=== PATIENT | male | born 1965 | race Caucasian/White ===

== ENCOUNTER 2020-06-12 12:56 | Emergency (ER) | payer OTHER, SELFPAY ==
[2020-06-12 14:20] VITALS: BP 171/86; PULSE 71; RESP 18; TEMP 36.4; O2SAT 97; BMI 29.5
--- NOTE | 2020-06-12 14:26 | XR_ITS ---
EXAMINATION: XR CHEST CLINICAL INFORMATION: Cough and SOB. COMPARISON: Unremarkable chest exam 10/07/2017 TECHNIQUE: Frontal view of the chest was obtained. FINDINGS: No significant abnormality is noted involving the heart, lungs, mediastinum, bony thorax or soft tissues. XR/XR chest 1V IMPRESSION: Unremarkable chest exam
--- NOTE | 2020-06-12 14:43 | ED.URI ---
HPI - URI/Sore Throat General Chief Complaint: Upper Respiratory Symptoms Stated Complaint: cough, chest wall pain Time Seen by Provider: 06/12/20 14:25 Source: patient Mode of arrival: ambulatory Limitations: no limitations History of Present Illness HPI Narrative: 55 y/o male with history of HTN presenting with severe coughing fits for the last 3 days. He states when he coughs he has trouble catching his breath and has lower rib pain. When he recovers the pain and SOB sensation resolve. He was recently around his granddaughter who was later diagnosed with COVID-19. He denies chest pain, difficutly breathing, N/V, abdominal pain. MD elicited complaint: cough Onset (ago): day(s) (3) Consistency: progressively worsening Severity: moderate Description of mucous: clear Able to tolerate fluids by mouth: Yes Relieving factors: nothing Context: sick contacts Associated symptoms: myalgias, headache, sore throat, cough and shortness of breath Treatments prior to arrival: none Related Data Previous Rx's Medication Instructions Recorded albuterol sulfate 1 inh INHALATION QID PRN #6.7 g 06/12/20 azithromycin [Zithromax Z-Dimitri] See Rx Instructions .ROUTE 06/12/20 .COMPLEX #6 tab benzonatate [Tessalon Perles] 100 mg PO TID PRN #14 cap 06/12/20 hydrocodone-homatropine [Hycodan 5 ml PO Q6H PRN #60 ml 06/12/20 (with homatropine)] prednisone 40 mg PO DAILY #10 tab 06/12/20 Allergies Allergy/AdvReac Type Severity Reaction Status Date / Time No Known Allergies Allergy Verified 06/12/20 14:22 [No Known Allergies*] Review of Systems Review of Systems: Constitutional: No Fever, No Chills ENT/Mouth: + sore throat, No Rhinorrhea, No Swallowing Difficulty Eyes: No Eye Pain, No Swelling, No Redness Cardiovascular: No Chest Pain, + SOB, No Orthopnea, No Edema Respiratory: No Cough, No Sputum, No Wheezing, No dyspnea Gastrointestinal: No Nausea, No Vomiting, No Diarrhea, No abdominal Pain Genitourinary: No Dysuria, No Urinary Frequency, No Hematuria Musculoskeletal: No joint pain, + Myalgias Skin: No Skin Lesions, No rash Neuro: No Weakness, No Numbness, No Dizziness, + Headache PMFSH Past Medical History Attestation statement: The following information was validated with the patient. Medical History HTN (hypertension) Social History Social History Advance Directives: No Advance Directives Information Provided: No Physical Exam Vital Signs: Vital Signs: Last Vital Signs Temp 97.6 F 06/12/20 14:20 Pulse 71 06/12/20 14:20 Resp 18 06/12/20 14:20 BP 171/86 H 06/12/20 14:20 Pulse Ox 97 06/12/20 14:20 Body Mass Index 29.5 Appearance: Alert. Oriented X3. No acute distress. Eyes: Pupils equal, round and reactive to light. ENT: Pharynx normal. Neck: Normal inspection. Neck supple. CVS: Normal heart rate and rhythm. Pulses normal. lower anterior chest wall tenderness. Respiratory: No respiratory distress. Focal inspiratory wheeze in LLL, no rhonchi, cleared after congested cough Abdomen: Soft and nontender. +BS x4 Skin: Skin warm and dry. Normal skin color. Normal skin turgor. No rashes. Extremities: No lower extremity edema. Neuro: Oriented X 3. No motor deficit. No sensory deficit. Course Course Course Narrative: 55 y/o presenting with cough after COVID-19 exposure. Mild wheeze on exam - will get CXR and resp panel. He appears well, conversing in complete sentences. Reevaluation(s) Reevaluation #1: CXR negative, resp panel negative. No distress. Will treat for acute bronchitis. Encouraged re-testing if symptoms persist given his exposure. Stable for discharge. MDM - URI/Sore Throat Lab Data Labs: Lab Results 06/12/20 Range/Units 14:48 Coronavirus (PCR) NEGATIVE (Negative) Influenza Type A (PCR) NEGATIVE (Negative) Influenza Type B (PCR) NEGATIVE (Negative) RSV RNA Qual (PCR) NEGATIVE (Negative) Critical Care Time Critical Care Time Critical Care Time: No Discharge Plan Discharge Clinical Impression: Bronchitis Patient Disposition: Home, Self-Care Instructions: Acute Bronchitis (ED) Additional Instructions: You were tested for COVID-19, Influenza and RSV today - all were NEGATIVE. Your chest x-ray was normal. We will treat you for bronchitis with the prescribed medications. Given your recent exposure to COVID-19, if your symptoms persist recommend getting tested again. If you develop chest pain, difficulty breathing or any other concerning symptom come back to the ER for further evaluation. Prescriptions: New prednisone 20 mg tablet 40 mg PO DAILY Qty: 10 RF: 0 azithromycin [Zithromax Z-Dimitri] 250 mg tablet See Rx Instructions .ROUTE .COMPLEX Qty: 6 RF: 0 hydrocodone-homatropine [Hycodan (with homatropine)] 5-1.5 mg/5 mL syrup 5 ml PO Q6H PRN (Reason: cough) Qty: 60 RF: 0 albuterol sulfate 90 mcg/actuation HFA aerosol inhaler 1 inh inhalation QID PRN (Reason: shortness of breath or wheezing) Qty: 6.7 RF: 0 benzonatate [Tessalon Perles] 100 mg capsule 100 mg PO TID PRN (Reason: cough) Qty: 14 RF: 0 Print Language: Serbian
[2020-06-12 15:48] LABS: Influenza A PCR NEGATIVE (Negative); Influenza B PCR NEGATIVE (Negative); Resp Syncy Virus RNA Qual PCR NEGATIVE (Negative); SARS COV2 PCR INHOUSE NEGATIVE (Negative)
== END 2020-06-12 17:03 | disposition home or self-care (01) ==
PROVIDERS: Physician Assistant; Emergency Provider Emergency Medicine; PCP Internal Medicine
DX: J40 Bronchitis, not specified as acute or chronic (principal); R05 Cough; R06.02 Shortness of breath; Z20.828 Contact with and (suspected) exposure to other viral communicable diseases
CPT/HCPCS: 0241U; 71045; 99283

== ENCOUNTER 2020-11-03 06:37 | Emergency (ER) | payer OTHER, SELFPAY ==
[2020-11-03] VITALS (7 sets, daily range): BP systolic 160–211; BP diastolic 83–96; PULSE 75–85; RESP 18–24; TEMP 37.1; O2SAT 96–97; BMI 29.0
--- NOTE | 2020-11-03 | ECG_ITS ---
Test Reason : CHESTWALLPAIN Blood Pressure : / mmHG Vent. Rate : 078 BPM Atrial Rate : 078 BPM P-R Int : 178 ms QRS Dur : 116 ms QT Int : 380 ms P-R-T Axes : 048 000 052 degrees QTc Int : 433 ms Normal sinus rhythm Incomplete right bundle branch block Borderline ECG When compared with ECG of 03-NOV-2020 07:08, No significant change was found Referred By: Noy Ovalles Electronically Signed By:BETZY PEREZ
--- NOTE | ~2020-11-03 | XR_ITS ---
EXAMINATION: XR CHEST CLINICAL INFORMATION: Shortness of breath COMPARISON: 06/12/2020, 02/08/2016 TECHNIQUE: Frontal view of the chest was obtained. FINDINGS: No focal consolidation, pleural effusion or pneumothorax. Chronic calcifications at the right pleural surface adjacent to the diaphragm. Heart size is normal. No acute osseous abnormality. XR/XR chest 1V IMPRESSION: No acute pulmonary process.
--- NOTE | 2020-11-03 06:48 | ED.SOB ---
HPI - SOB/Dyspnea General Chief Complaint: Dyspnea Stated Complaint: Cough/sob Time Seen by Provider: 11/03/20 06:48 Source: patient and proposal review analyst Mode of arrival: ambulatory Limitations: no limitations History of Present Illness Pertinent past history: other (bronchitis) Onset (ago): day(s) (3) Context: smoke/fume exposure Timing: constant and progressively worsening Severity: moderate Exacerbating factors: exertion and coughing Relieving factors: nothing Known history of: other (bronchitis) Associated symptoms: cough and wheezing Treatment prior to arrival: bronchodilator Related Data Previous Rx's Medication Instructions Recorded albuterol sulfate 1 inh INHALATION QID PRN #6.7 g 06/12/20 azithromycin [Zithromax Z-Dimitri] See Rx Instructions .ROUTE 06/12/20 .COMPLEX #6 tab benzonatate [Tessalon Perles] 100 mg PO TID PRN #14 cap 06/12/20 hydrocodone-homatropine [Hycodan 5 ml PO Q6H PRN #60 ml 06/12/20 (with homatropine)] prednisone 40 mg PO DAILY #10 tab 06/12/20 albuterol sulfate 2 puff INHALATION QID PRN #6.7 g 11/03/20 amlodipine 5 mg PO DAILY #30 tab 11/03/20 prednisone 40 mg PO DAILY 5 Days #10 tab 11/03/20 Allergies Allergy/AdvReac Type Severity Reaction Status Date / Time No Known Allergies Allergy Verified 06/12/20 14:22 [No Known Allergies*] Review of Systems Review of Systems: Constitutional : No Fever, No Chills ENT/Mouth : No sore throat, No Rhinorrhea, No Swallowing Difficulty Eyes: No Eye Pain, No Swelling, No Redness Cardiovascular : No Chest Pain, positive SOB, No Orthopnea, no Edema Respiratory : pos Cough, No Sputum, pos Wheezing, positive dyspnea Gastrointestinal : No Nausea, No Vomiting, No Diarrhea, No abdominal Pain, No Hematochezia, No Melena Genitourinary : No Dysuria, No Urinary Frequency, No Hematuria Musculoskeletal : No joint pain, No Myalgias Skin : No Skin Lesions, No rash Neuro : No Weakness, No Numbness, No Dizziness, No Headache Psych : No Anxiety/Panic, No Depression Heme/Lymph: No Bruising, No Lymphadenopathy Endocrine : No Polyuria, No Polydipsia All other systems reviewed and are negative [facility] Past Medical History Attestation statement: The following information was validated with the patient. Medical History Bronchitis HTN (hypertension) Social History Social History Patient Tobacco Use Status: Current everyday Tobacco user Substance Use Type: Crack/Cocaine Advance Directives: Yes Advance Directives Information Provided: Yes Advance Directives on File: No Physical Exam Vital Signs: Vital Signs: Last Vital Signs Temp 98.7 F 11/03/20 07:15 Pulse 75 11/03/20 11:03 Resp 18 11/03/20 11:03 BP 160/83 H 11/03/20 11:03 Pulse Ox 96 11/03/20 11:03 Body Mass Index 29.0 Appearance: Alert. Oriented X3. No acute distress. Eyes: Pupils equal, round and reactive to light. ENT: Pharynx normal. Neck: Normal inspection. Neck supple. CVS: Normal heart rate and rhythm. Pulses normal. Respiratory: no respiratory distress Breath sounds decreased throughout Abdomen: Soft and nontender. Skin: Skin warm and dry. Normal skin color. Normal skin turgor. Extremities: No lower extremity edema. No calf ttp Neuro: Oriented X 3. No motor deficit. No sensory deficit. Course Course Course Narrative: of note has not been on amlodipine for 1+ month BP improved, feels much better, repeat trop flat, stable for DC MDM - SOB/Dyspnea MDM Narrative Medical decision making narrative: 55 yo male hx of HTN, bronchitis here with 3 days of cough, shortness of breath used cocaine yesterday - at this time he denies CP but is HTNive unsure of his HTN medication at this time labs, CXR< EKG, neb, IV steroids - no CP to suggest PE/ACS, dispo per results and findings. Lab Data Result diagrams: 11/03/20 07:27 11/03/20 07:27 Labs: Lab Results 11/03/20 11/03/20 11/03/20 Range/Units 07:26 07:26 07:26 WBC (4.8-10.8) X10*3/uL RBC (4.60-5.80) X10*6/uL Hgb (14.0-18.0) g/dl Hct (42-52) % MCV (80-98) fL MCH (27.0-33.0) pg MCHC (31.0-36.0) g/dl RDW (11.0-16.0) % Plt Count (160-400) X10*3/uL MPV (9.4-12.4) fL Immature Gran % (Auto) (0.0-0.4) % Neut % (Auto) (45-73) % Lymph % (Auto) (20-40) % Martin % (Auto) (2-11) % Eos % (Auto) (0-4) % Baso % (Auto) (0-2) % Lymph # (Auto) (1.2-4.9) X10*3/uL Martin # (Auto) (0.1-1.2) X10*3/uL Eos # (Auto) (0.0-0.4) X10*3/uL Baso # (Auto) (0.0-0.2) X10*3/uL Abs Immat Gran (auto) (0.00-0.03) X10*3/uL Absolute Neuts (auto) (2.0-8.3) X10*3/uL Absolute Nucleated RBC (0.0-0.012) X10*3/uL Nucleated RBC % (auto) (0.0-0.2) /100WBC Smear Tech's Comments Hold Blue Top SEE NOTE Sodium (135-145) mmol/L Potassium (3.3-5.1) mmol/L Chloride (96-108) mmol/L Carbon Dioxide (22-29) mmol/L Anion Gap (12-20) BUN (9-16) mg/dL Creatinine (0.5-1.4) mg/dL Estim Creat Clear Calc Estimated GFR Random Glucose (60-115) mg/dL Calcium (8.4-10.2) mg/dL Magnesium (1.6-2.6) mg/dL Total Bilirubin (0.0-1.0) mg/dL Direct Bilirubin (0.0-0.5) mg/dL AST (5-37) U/L ALT (0-40) U/L Alkaline Phosphatase (39-117) U/L Troponin I High Sens (<3.5-35.0) ng/L B-Natriuretic Peptide Cancelled Total Protein (6.5-8.0) g/dL Albumin (3.5-5.0) g/dL COVID-19 (SUSANA) Negative (Negative) COVID-19 Clin Com See Note 11/03/20 11/03/20 11/03/20 Range/Units 07:26 07:26 07:27 WBC 14.6 H (4.8-10.8) X10*3/uL RBC 5.42 (4.60-5.80) X10*6/uL Hgb 15.8 (14.0-18.0) g/dl Hct 47.0 (42-52) % MCV 86.7 (80-98) fL MCH 29.2 (27.0-33.0) pg MCHC 33.6 (31.0-36.0) g/dl RDW 15.3 (11.0-16.0) % Plt Count 253 (160-400) X10*3/uL MPV 11.0 (9.4-12.4) fL Immature Gran % (Auto) 0.3 (0.0-0.4) % Neut % (Auto) 64.2 (45-73) % Lymph % (Auto) 16.0 L (20-40) % Martin % (Auto) 15.6 H (2-11) % Eos % (Auto) 3.6 (0-4) % Baso % (Auto) 0.3 (0-2) % Lymph # (Auto) 2.3 (1.2-4.9) X10*3/uL Martin # (Auto) 2.3 H (0.1-1.2) X10*3/uL Eos # (Auto) 0.5 H (0.0-0.4) X10*3/uL Baso # (Auto) 0.1 (0.0-0.2) X10*3/uL Abs Immat Gran (auto) 0.05 H (0.00-0.03) X10*3/uL Absolute Neuts (auto) 9.3 H (2.0-8.3) X10*3/uL Absolute Nucleated RBC 0.000 (0.0-0.012) X10*3/uL Nucleated RBC % (auto) 0.0 (0.0-0.2) /100WBC Smear Tech's Comments VERIFIED Hold Blue Top Sodium (135-145) mmol/L Potassium (3.3-5.1) mmol/L Chloride (96-108) mmol/L Carbon Dioxide (22-29) mmol/L Anion Gap (12-20) BUN (9-16) mg/dL Creatinine (0.5-1.4) mg/dL Estim Creat Clear Calc Estimated GFR Random Glucose (60-115) mg/dL Calcium (8.4-10.2) mg/dL Magnesium 2.2 (1.6-2.6) mg/dL Total Bilirubin 0.7 (0.0-1.0) mg/dL Direct Bilirubin 0.2 (0.0-0.5) mg/dL AST 19 (5-37) U/L ALT 23 (0-40) U/L Alkaline Phosphatase 96 (39-117) U/L Troponin I High Sens 8.8 (<3.5-35.0) ng/L B-Natriuretic Peptide 10 Total Protein 7.0 (6.5-8.0) g/dL Albumin 4.2 (3.5-5.0) g/dL COVID-19 (SUSANA) (Negative) COVID-19 Clin Com 11/03/20 11/03/20 Range/Units 07:27 10:55 WBC (4.8-10.8) X10*3/uL RBC (4.60-5.80) X10*6/uL Hgb (14.0-18.0) g/dl Hct (42-52) % MCV (80-98) fL MCH (27.0-33.0) pg MCHC (31.0-36.0) g/dl RDW (11.0-16.0) % Plt Count (160-400) X10*3/uL MPV (9.4-12.4) fL Immature Gran % (Auto) (0.0-0.4) % Neut % (Auto) (45-73) % Lymph % (Auto) (20-40) % Martin % (Auto) (2-11) % Eos % (Auto) (0-4) % Baso % (Auto) (0-2) % Lymph # (Auto) (1.2-4.9) X10*3/uL Martin # (Auto) (0.1-1.2) X10*3/uL Eos # (Auto) (0.0-0.4) X10*3/uL Baso # (Auto) (0.0-0.2) X10*3/uL Abs Immat Gran (auto) (0.00-0.03) X10*3/uL Absolute Neuts (auto) (2.0-8.3) X10*3/uL Absolute Nucleated RBC (0.0-0.012) X10*3/uL Nucleated RBC % (auto) (0.0-0.2) /100WBC Smear Tech's Comments Hold Blue Top Sodium 138 (135-145) mmol/L Potassium 4.1 (3.3-5.1) mmol/L Chloride 104 (96-108) mmol/L Carbon Dioxide 24 (22-29) mmol/L Anion Gap 14 (12-20) BUN 19 H (9-16) mg/dL Creatinine 0.97 (0.5-1.4) mg/dL Estim Creat Clear Calc 86.3 Estimated GFR > 60 Random Glucose 97 (60-115) mg/dL Calcium 9.7 (8.4-10.2) mg/dL Magnesium (1.6-2.6) mg/dL Total Bilirubin (0.0-1.0) mg/dL Direct Bilirubin (0.0-0.5) mg/dL AST (5-37) U/L ALT (0-40) U/L Alkaline Phosphatase (39-117) U/L Troponin I High Sens 4.8 (<3.5-35.0) ng/L B-Natriuretic Peptide Total Protein (6.5-8.0) g/dL Albumin (3.5-5.0) g/dL COVID-19 (SUSANA) (Negative) COVID-19 Clin Com ECG Data Attestation: I personally reviewed and interpreted this ECG as follows: ECG interpretation date: 11/03/20 ECG interpretation time: 07:10 Interpretation: Rate: 82 Rhythm: NSR Ravenel: left Normal P waves. Normal ELICEO. incomplete RBBB ST T wave : normal, no ROXI qTC: normal prior studies: unchanged 2017, no acute ischemia The study has been interpreted contemporaneously by me. EKG #2 Rate: 78 Rhythm: NSR Ravenel: left Normal P waves. Normal ELICEO. incomplete RBBB ST T wave : normal no acut ischemia qTC: normal prior studies: unchanged no acute ischemia The study has been interpreted contemporaneously by me. .. Discharge Plan Discharge Clinical Impression: Bronchitis HTN (hypertension) Qualifiers: Hypertension type: unspecified Qualified Code(s): I10 - Essential (primary) hypertension Patient Disposition: Home, Self-Care Instructions: Acute Bronchitis (ED), Chronic Hypertension (ED) Additional Instructions: return to ED for any worsening symptoms or concerns Prescriptions: New albuterol sulfate 90 mcg/actuation HFA aerosol inhaler 2 puff inhalation QID PRN (Reason: shortness of breath or wheezing) Qty: 6.7 RF: 0 prednisone 20 mg tablet 40 mg PO DAILY 5 Days Qty: 10 RF: 0 amlodipine 5 mg tablet 5 mg PO DAILY Qty: 30 RF: 2 No Action prednisone 20 mg tablet 40 mg PO DAILY Qty: 10 RF: 0 azithromycin [Zithromax Z-Dimitri] 250 mg tablet See Rx Instructions .ROUTE .COMPLEX Qty: 6 RF: 0 hydrocodone-homatropine [Hycodan (with homatropine)] 5-1.5 mg/5 mL syrup 5 ml PO Q6H PRN (Reason: cough) Qty: 60 RF: 0 albuterol sulfate 90 mcg/actuation HFA aerosol inhaler 1 inh inhalation QID PRN (Reason: shortness of breath or wheezing) Qty: 6.7 RF: 0 benzonatate [Tessalon Perles] 100 mg capsule 100 mg PO TID PRN (Reason: cough) Qty: 14 RF: 0 Referrals: Niyah Ahumada MD [Primary Care Provider] - 2 days (if not better) Stand Alone Forms: Work/School Release Print Language: Maltese
--- NOTE | 2020-11-03 06:51 | ECG_ITS ---
Test Reason : DYSPNEA Blood Pressure : / mmHG Vent. Rate : 082 BPM Atrial Rate : 082 BPM P-R Int : 188 ms QRS Dur : 108 ms QT Int : 360 ms P-R-T Axes : 027 -05 051 degrees QTc Int : 420 ms Normal sinus rhythm Incomplete right bundle branch block Borderline ECG When compared with ECG of 11-JUN-2017 18:00, Vent. rate has increased BY 27 BPM Incomplete right bundle branch block is now Present Referred By: Noy Ovalles Electronically Signed By:BETZY PEREZ
[2020-11-03] MEDS: amLODIPine Besylate 5 MG TABLET PO (07:29)
[2020-11-03] MEDS: methylPREDNISolone Sod Succ 125 MG/2 ML VIAL IVPUSH (07:29)
[2020-11-03] MEDS: Albuterol Sulfate (0.083%) 2.5 MG/3 ML VIAL.NEB INHALE (07:41)
[2020-11-03 07:45] LABS: Basophils Absolute Auto 0.1 X10*3/uL (0.0-0.2); Basophils Percent Auto 0.3 % (0-2); Eosinophils Absolute Auto 0.5 X10*3/uL (0.0-0.4); Eosinophils Percent Auto 3.6 % (0-4); Hemoglobin 15.8 g/dl (14.0-18.0); Imm Gran Abs Auto 0.05 X10*3/uL (0.00-0.03); Imm Gran Pct Auto 0.3 % (0.0-0.4); Lymphocytes Absolute Auto 2.3 X10*3/uL (1.2-4.9); MANUAL DIFF FLAG SCAN; Mean Corpuscular HGB Conc 33.6 g/dl (31.0-36.0); Mean Corpuscular Hemoglobin 29.2 pg (27.0-33.0); Mean Corpuscular Volume 86.7 fL (80-98); Monocytes Absolute Auto 2.3 X10*3/uL (0.1-1.2); Monocytes Percent Auto 15.6 % (2-11); Neutrophils Absolute Auto 9.3 X10*3/uL (2.0-8.3); Neutrophils Percent Auto 64.2 % (45-73); Platelet Count 253 X10*3/uL (160-400); Red Blood Count 5.42 X10*6/uL (4.60-5.80); Red Cell Distribution Width 15.3 % (11.0-16.0); SCAN SMEAR FLAG 1; White Blood Count 14.6 X10*3/uL (4.8-10.8)
[2020-11-03 07:59] LABS: COVID-19 Test Negative (Negative); IDNOW Serial# 9DD0AD1C
[2020-11-03 08:11] LABS: SLIDE REVIEW VERIFIED
[2020-11-03 08:19] LABS: Alanine Aminotransferase 23 U/L (0-40); Albumin Level 4.2 g/dL (3.5-5.0); Alkaline Phosphatase 96 U/L (39-117); Aspartate Amino Transferase 19 U/L (5-37); Bilirubin Direct 0.2 mg/dL (0.0-0.5); Bilirubin Total 0.7 mg/dL (0.0-1.0); Magnesium 2.2 mg/dL (1.6-2.6)
[2020-11-03 08:19] LABS: Anion Gap 14 (12-20); Blood Urea Nitrogen 19 mg/dL (9-16); Calcium 9.7 mg/dL (8.4-10.2); Carbon Dioxide 24 mmol/L (22-29); Chloride 104 mmol/L (96-108); Creatinine Clr Calc Pharmacy 86.3; Estimated Glomerular Filt Rate > 60; Glucose Random 97 mg/dL (60-115); Potassium 4.1 mmol/L (3.3-5.1); Sodium 138 mmol/L (135-145)
[2020-11-03 08:28] LABS: B Type Natriuretic Peptide 10 pg/mL (<100); Troponin-I High Sensitivity 8.8 ng/L (<3.5-35.0)
--- NOTE | 2020-11-03 08:54 | PC.NURSE ---
nad, reports breathing improved, no pain, sr on monitor
--- NOTE | 2020-11-03 11:14 | PC.NURSE ---
amlodipine held per
[2020-11-03 11:39] LABS: Troponin-I High Sensitivity 4.8 ng/L (<3.5-35.0)
== END 2020-11-03 12:18 | disposition home or self-care (01) ==
PROVIDERS: Emergency Provider Emergency Medicine; PCP Internal Medicine
DX: J40 Bronchitis, not specified as acute or chronic (principal); R06.00 Dyspnea, unspecified; R05 Cough; F14.90 Cocaine use, unspecified, uncomplicated; F17.200 Nicotine dependence, unspecified, uncomplicated; I10 Essential (primary) hypertension; Z20.822 Contact with and (suspected) exposure to COVID-19; Z79.899 Other long term (current) drug therapy; Z71.6 Tobacco abuse counseling
CPT/HCPCS: 36415; 71045; 80048; 80076; 83735; 83880; 84484; 85025; 87635; 93005; 94640; 96374; 99284; J2930

== ENCOUNTER 2021-09-19 13:31 | Emergency (ER) | payer OTHER, SELFPAY ==
[2021-09-19 15:00] VITALS: BP 186/94; PULSE 82; RESP 19; TEMP 36.6; O2SAT 98; BMI 29.4
--- NOTE | 2021-09-19 15:54 | ED_ITS ---
HPI - General Adult General Chief complaint: Ear Problems Stated complaint: ear pain Time Seen by Provider: 09/19/21 15:45 Source: patient Mode of arrival: ambulatory Limitations: no limitations History of Present Illness HPI narrative: 56 yold male with pmh of hypertension presents to the ED for right ear pain, yellow discharge from ear, and loss of hearing for 3 days. patient states has similiar ear infection year. Patient denies any recent ear swimming, fever, chills, or any trauma to the ear. Related Data Previous Rx's Medication Instructions Recorded albuterol sulfate 90 mcg/actuation 1 inh INHALATION QID PRN #6.7 g 06/12/20 aerosol inhaler azithromycin 250 mg tablet See Rx Instructions .ROUTE 06/12/20 (Zithromax Z-Dimitri) .COMPLEX #6 tab benzonatate 100 mg capsule 100 mg PO TID PRN #14 cap 06/12/20 (Tessalon Perles) hydrocodone-homatropine 5 mg-1.5 5 ml PO Q6H PRN #60 ml 06/12/20 mg/5 mL oral syrup (Hycodan (with homatropine)) prednisone 20 mg tablet 40 mg PO DAILY #10 tab 06/12/20 albuterol sulfate 90 mcg/actuation 2 puff INHALATION QID PRN #6.7 g 11/03/20 aerosol inhaler amlodipine 5 mg tablet 5 mg PO DAILY #30 tab 11/03/20 prednisone 20 mg tablet 40 mg PO DAILY 5 Days #10 tab 11/03/20 amlodipine 5 mg tablet 5 mg PO DAILY 14 Days #14 tab 09/19/21 [id number] 3.3 5 drp OTIC (EAR) RIGHT TID 10 Days 09/19/21 mg-3 mg-10 mg-0.5 mg/mL ear #300 ml drops,susp (Cortisporin-TC) Allergies Allergy/AdvReac Type Severity Reaction Status Date / Time No Known Allergies Allergy Verified 09/19/21 15:11 [No Known Allergies*] Review of Systems Review of Systems: right ear pain, yellow ear discharge, loss of hearing Yes all other systems are reviewed and are negative [facility] Past Medical History Medical History Bronchitis HTN (hypertension) Social History Social History Patient Tobacco Use Status: Current everyday Tobacco user Substance Use Type: Crack/Cocaine Advance Directives: No Advance Directives Information Provided: No Physical Exam ED Vital Signs: Vital Signs - 24 hr 09/19/21 15:00 Temperature 98 F Pulse Rate 82 Respiratory Rate 19 Blood Pressure 186/94 H Pulse Oximetry 98 BMI result Body Mass Index 29.4 Const General: cooperative, healthy appearing, comfortable, no acute distress, well developed, alert, awake and Physically active Orientation/consciousness: oriented to time and patient oriented x3 HENMT Head: Yes normal to inspection, Yes No palpable skull fracture present, Yes normocephalic, Yes atraumatic and No abrasion Ears: hearing grossly normal bilaterally, external ears normal, TM normal on the left, mastoids normal, no periauricular adenopathy and Abnormal EAC present erythema, edema, EAC tenderness and otic discharge (yellow discharge.) Eyes General: appearance normal, both eyes and all related structures Neck Neck: Yes normal visual inspection, Yes full ROM, Yes no lymphadenopathy, Yes no meningeal signs, Yes trachea midline, Yes supple, No anterior neck swelling and No tender Chest Chest palpation & inspection: normal inspection of the chest and normal palpation of entire chest wall Resp Effort & Inspection: normal respiratory effort and able to speak in complete sentences Auscultation: clear to auscultation bilaterally Cardio Jugular venous distension: no JVD Heart sounds: S1 normal heart sound present and S2 normal heart sound present GI Inspection: Yes normal to inspection and No abdominal wall ecchymosis Palpation (GI): Soft to palpation, not firm, nontender, no guarding and not rigid General: No CVA tenderness and Yes no CVA tenderness Back/Spine/Pelvis Back: no CVA tenderness, No CVA tenderness and No back tenderness Skin General skin exam: no rashes or lesions noted and elasticity normal Neuro General: oriented to time, patient oriented x3, gait normal, no meningeal signs and CN's II-XI intact bilaterally Cranial nerves: Yes CN's II-XII intact bilaterally Extrem General: Yes normal to inspection and Yes full ROM Psych Appearance: grossly normal, well kempt and not disheveled Course Course Course Narrative: ear infection. Reevaluation(s) Reevaluation #1: physical exam indicate otitix externa. patient will be dsicharged with ear antibiotics. patient blood pressure is high. patient admits to being non- compliant with his blood pressures for a month. patient has not taken amlodpoine for amonth. patient has no neuro deficits. 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 patient educated on stroke, heart attack, and kidney injury from uncontrolled hypertension Time: 16:04 Medical Decision Making MDM Narrative Medical decision making narrative: Otits externa. hypertension Discharge Plan Discharge Clinical Impression: Otitis externa Patient Disposition: Home, Self-Care Instructions: Otitis Externa (ED) Additional Instructions: Carey examen de o?do indica infecci?n de o?do. Necesitar? gotas antibi?codi para los o?dos. Tambi?n se le jabari? de anne marie con medicaci?n para la hipertensi?n. Regrese al servicio de urgencias por hinchaz?n/eritema detr?s de la oreja, empeoramiento del dolor de o?do, dolor de jerardo, fiebre, escalofr?os, empeoramiento de la secreci?n del o?do, ca?da facial, par?lisis de las extremidades, debilidad, mareos, dificultad para hablar, p?rdida de la visi?n o cualquier otro s?ntoma preocupante. por favor vini un seguimiento con PCP. Prescriptions: New Cortisporin-TC 3.3-3-10-0.5 mg/mL drops,suspension 5 drp otic (ear) right TID 10 Days Qty: 300 0RF amlodipine 5 mg tablet 5 mg PO DAILY 14 Days Qty: 14 0RF No Action albuterol sulfate 90 mcg/actuation HFA aerosol inhaler 2 puff inhalation QID PRN (Reason: shortness of breath or wheezing) Qty: 6.7 0RF prednisone 20 mg tablet 40 mg PO DAILY 5 Days Qty: 10 0RF amlodipine 5 mg tablet 5 mg PO DAILY Qty: 30 2RF prednisone 20 mg tablet 40 mg PO DAILY Qty: 10 0RF azithromycin [Zithromax Z-Dimitri] 250 mg tablet See Rx Instructions .ROUTE .COMPLEX Qty: 6 0RF Rx Instructions: take 500 mg today (day 1), then 250 mg for 4 days (days 2-5) hydrocodone-homatropine [Hycodan (with homatropine)] 5-1.5 mg/5 mL syrup 5 ml PO Q6H PRN (Reason: cough) Qty: 60 0RF albuterol sulfate 90 mcg/actuation HFA aerosol inhaler 1 inh inhalation QID PRN (Reason: shortness of breath or wheezing) Qty: 6.7 0RF benzonatate [Tessalon Perles] 100 mg capsule 100 mg PO TID PRN (Reason: cough) Qty: 14 0RF Interventions: ED Discharge Assessment Last Done: 09/19/21 16:37 Discharge Date/Time: 09/19/21 16:37 Print Language: Korean
== END 2021-09-19 16:37 | disposition home or self-care (01) ==
PROVIDERS: Emergency Provider Emergency Medicine; PCP Internal Medicine
DX: H60.91 Unspecified otitis externa, right ear (principal); I10 Essential (primary) hypertension; Z91.14 Patient's other noncompliance with medication regimen
CPT/HCPCS: 99283

== ENCOUNTER 2022-01-13 06:00 | Inpatient (IN) | payer OTHER, SELFPAY ==
[2022-01-13] VITALS (10 sets, daily range): BP systolic 167–223; BP diastolic 91–115; PULSE 76–103; RESP 14–18; TEMP 36.8–37.8; O2SAT 95–98; BMI 29.0
--- NOTE | ~2022-01-13 | CT_ITS ---
CT TEMPORAL BONES WITHOUT CONTRAST CLINICAL INFORMATION: Left ear pain. Follow-up otomastoiditis on prior. COMPARISON: Temporal bone CT 01/13/2022. TECHNIQUE: Multidetector CT acquisition of the temporal bones obtained without contrast. Multiplanar reformats are acquired and utilized for image interpretation. FINDINGS: Similar appearing thickening of the left cartilaginous external auditory canal with significant adjacent inflammation within the left periauricular soft tissues that is similar to the prior exam. As on the previous study, the left external auditory canal remains nearly completely opacified. Progressive left middle ear cavity opacification and progressive moderate left mastoid effusion without bony erosion. Assessment on the study is limited given the lack of contrast. Inner ear structures including the cochlea, vestibules, and semicircular canals are unremarkable. Vestibular aqueducts are not enlarged. There is mild mucosal thickening throughout the paranasal sinuses. Partially imaged periapical disease involving the maxillary dentition. The TMJs are unremarkable. CT/CT mastoid IMPRESSION: Imaging findings remain compatible with left-sided otitis externa with similar significant thickening of the left cartilaginous EAC and similar cellulitis within the left periauricular soft tissues. Slightly progressive opacification of left middle ear cavity and progressive moderate left mastoid effusion without associated bone erosion. Assessment on the study is limited given the lack of contrast.
--- NOTE | ~2022-01-13 | CT_ITS ---
EXAMINATION: TEMPORAL BONE/MASTOID CT SCAN CLINICAL INFORMATION: Pain and swelling. COMPARISON: CT scan of the head 01/11/2015. TECHNIQUE: A noncontrast axial CT scan of the temporal bones was obtained. Multiplanar reformatted images were generated at the technologist workstation. This CT examination was performed using dose optimization techniques as appropriate, variously including the following: *Automated exposure control *Adjustment of mA and/or kV according to patient size (this includes techniques or standardized protocols for targeted exams where dose is matched to indication/reason for exam; i.e. extremities or head) *Use of iterative reconstruction technique DLP: 324 mGy-cm. FINDINGS: Left: There is extensive soft tissue thickening around the left auricle, as well as of the mucosa of the external artery canal. There is also debris versus soft tissue thickening within the external auditory canal. There is retraction of the tympanic membrane. The scutum appears intact. There is extensive opacification of the middle ear cavity, and there is moderate to severe opacification of the left mastoid air cells and Prussak's space. The ossicular chain is intact. The labyrinthine structures are normal. Mineralization within the otic capsule is preserved. The internal auditory canal is unremarkable. The temporomandibular joint is intact. Right: The external auditory canal is normal and there is no abnormal thickening of the tympanic membrane. The middle ear cavity is well-aerated. The ossicular chain is intact. The mastoid air cells are well aerated. The labyrinthine structures are normal. Mineralization within the otic capsule is preserved. The internal auditory canal is unremarkable. The temporomandibular joint is intact. Other: There is mild mucoperiosteal thickening of the bilateral maxillary sinuses. Limited evaluation of the intracranial structures is unremarkable. There is a torus palatinus. There are extensive periapical lucencies around multiple teeth in the maxilla bilaterally. CT/CT mastoid IMPRESSION: 1. There is opacification of the left middle ear cavity and mastoid air cells, there is also soft tissue thickening in the external artery canal and around the left auricle. The findings are consistent with left otitis externa and otomastoiditis. The right mastoid structures are normal. 2. There is mild mucoperiosteal thickening in the bilateral maxillary sinuses. There are extensive periapical lucencies in the maxilla bilaterally.
--- NOTE | 2022-01-13 06:18 | ECG_ITS ---
Test Reason : PAIN RADIATING TO l SIDE Blood Pressure : / mmHG Vent. Rate : 081 BPM Atrial Rate : 081 BPM P-R Int : 176 ms QRS Dur : 102 ms QT Int : 366 ms P-R-T Axes : 042 -20 051 degrees QTc Int : 425 ms Normal sinus rhythm Moderate voltage criteria for LVH, may be normal variant ( R in aVL , Andrew product ) Borderline ECG When compared with ECG of 13-JAN-2022 06:18, Incomplete right bundle branch block is no longer Present Referred By: Generic ED Physician Electronically Signed By:BLANCA GIL MD
--- NOTE | 2022-01-13 06:40 | ED.EAR ---
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 He states it just happens. He reports he cannot hear out of it. Patient also not compliant with his BP medications x 5 days MD Complaint: ear pain and decreased hearing Location: left ear Duration: constant Severity: severe Relieving factors: nothing Exacerbating factors: palpation Context: other (3rd time) Discharge from ear: yes - purulent Associated symptoms ear: decreased hearing, headache, external ear tenderness, ear swelling and neck pain Treatment prior to arrival: none Related Data Previous Rx's Medication Instructions Recorded albuterol sulfate 90 mcg/actuation 2 puff inhalation QID PRN 11/03/20 aerosol inhaler shortness of breath or wheezing #6.7 grams amlodipine 5 mg tablet 5 mg PO DAILY #30 tabs 11/03/20 Allergies Allergy/AdvReac Type Severity Reaction Status Date / Time No Known Allergies Allergy Verified 09/19/21 15:11 [No Known Allergies*] Review of Systems Review of Systems: Constitutional : No Fever, No Chills, No Fatigue, No Malaise ENT/Mouth : No sore throat, No Rhinorrhea, pos ear pain, pos hearing loss Eyes: No Eye Pain, No Swelling, No Redness Cardiovascular : No Chest Pain, No SOB Respiratory : No Cough, No Sputum, No Wheezing Gastrointestinal : No Nausea, No Vomiting, No Diarrhea Genitourinary : No Dysuria, No Urinary Frequency, No Hematuria, Musculoskeletal : No joint pain, No Myalgias, No Joint Swelling Skin : No Skin Lesions, No rash Neuro : No Weakness, No Numbness, No Dizziness, No Headache Psych : No Anxiety/Panic, No Depression Heme/Lymph: No Bruising, No Bleeding, pos Lymphadenopathy Endocrine : No Polyuria, No Polydipsia All other systems reviewed and are negative [facility] Past Medical History Attestation statement: The following information was validated with the patient. Medical History Bronchitis HTN (hypertension) Social History Social History Patient Tobacco Use Status: Current everyday Tobacco user Substance Use Type: Crack/Cocaine Advance Directives: Yes Advance Directives Information Provided: Yes Advance Directives on File: No Physical Exam Vital Signs: Vital Signs: Last Vital Signs Temp 98.2 F 01/13/22 07:15 Pulse 90 01/13/22 11:20 Resp 16 01/13/22 09:25 BP 206/97 H 01/13/22 11:20 Pulse Ox 98 01/13/22 11:20 O2 Del Method 01/13/22 11:20 BMI result Body Mass Index 29.0 Appearance: Alert. Oriented X3. No acute distress. Eyes: Pupils equal, round and reactive to light. ENT: Pharynx normal. L ear external canal swelling moderate with mild mastoid swelling and ttp of the mastoid, marked preauricular swelling with lymphadenopathy and mild L anterior cervical lymphadenopathy, canal is markedly swollen I placed an ear wick to we can instill drops without issue here. He has no trismus no sublingual or submandibular swelling. No induration on the neck. Neck: Normal inspection. Neck supple. CVS: Normal heart rate and rhythm. Pulses normal. Respiratory: No respiratory distress. Breath sounds normal. Abdomen: Soft and nontender. Skin: Skin warm and dry. Normal skin color. Normal skin turgor. Extremities: No lower extremity edema. No calf ttp Neuro: Oriented X 3. No motor deficit. No sensory deficit. Course Course Course Narrative: IV hydralazine for elevated HTN ordered, he is not compliant BP did come down I do not want to lower him much further as he is not compliant and has no signs of end organ dysfunctino has WBC count - prior elevation of 14, neg lactic acid, normal HR, afebrile CT scan mastoiditis given WBC count will admit for IV antibiotics MDM - Ear MDM Narrative Medical decision making narrative: 56 yo male with L otitis externa and mastoid ttp - will obtain labs, cultures, mastoid CT scan - ear wick placed, IV levofloxacin/zosyn ordered. PO amlodipine. He states his swelling today is baseline for him when gets these infections which is impressive and he has not seen ENT. He has no airway issues. Dispo per results and findings anticipate given appearance he will need IV abx admission for mastoiditis Lab Data Result diagrams: 01/13/22 06:42 01/13/22 06:42 Labs: Lab Results 01/13/22 01/13/22 01/13/22 Range/Units 06:42 06:42 07:23 WBC 21.2 H (4.8-10.8) X10*3/uL RBC 5.92 H (4.60-5.80) X10*6/uL Hgb 16.9 (14.0-18.0) g/dl Hct 50.9 (42.0-52.0) % MCV 86.0 (80.0-98.0) fL MCH 28.5 (27.0-33.0) pg MCHC 33.2 (31.0-36.0) g/dl RDW 15.7 (11.0-16.0) % Plt Count 272 (160-400) X10*3/uL MPV 10.8 (9.4-12.4) fL Immature Gran % (Auto) 0.6 H (0.0-0.4) % Neut % (Auto) 68.6 (45-73) % Lymph % (Auto) 16.1 L (20-40) % Randolph % (Auto) 12.7 H (2-11) % Eos % (Auto) 1.7 (0-4) % Baso % (Auto) 0.3 (0-2) % Lymph # (Auto) 3.4 (1.2-4.9) X10*3/uL Randolph # (Auto) 2.7 H (0.1-1.2) X10*3/uL Eos # (Auto) 0.4 (0.0-0.4) X10*3/uL Baso # (Auto) 0.1 (0.0-0.2) X10*3/uL Abs Immat Gran (auto) 0.12 H (0.00-0.03) X10*3/uL Absolute Neuts (auto) 14.5 H (2.0-8.3) x10*3/uL Absolute Nucleated RBC 0.000 (0.0-0.012) X10*3/uL Nucleated RBC % (auto) 0.0 (0.0-0.2) /100WBC Smear Tech's Comments VERIFIED Sodium 139 (135-145) mmol/L Potassium 4.3 (3.3-5.1) mmol/L Chloride 106 (96-108) mmol/L Carbon Dioxide 23 (22-29) mmol/L Anion Gap 14 (12-20) BUN 20 H (9-16) mg/dL Creatinine 1.21 (0.5-1.4) mg/dL Estim Creat Clear Calc 68.3 Estimated GFR > 60 Random Glucose 108 (60-115) mg/dL Lactic Acid 1.2 (0.5-2.0) mmol/L Calcium 9.6 (8.4-10.2) mg/dL Total Bilirubin 0.7 (0.0-1.0) mg/dL AST 14 (5-37) U/L ALT 18 (0-40) U/L Alkaline Phosphatase 92 (39-117) U/L Total Protein 7.3 (6.5-8.0) g/dL Albumin 4.3 (3.5-5.0) g/dL COVID-19 ([facility]NA) (Negative) COVID-19 Clin Com 01/13/22 Range/Units 10:43 WBC (4.8-10.8) X10*3/uL RBC (4.60-5.80) X10*6/uL Hgb (14.0-18.0) g/dl Hct (42.0-52.0) % MCV (80.0-98.0) fL MCH (27.0-33.0) pg MCHC (31.0-36.0) g/dl RDW (11.0-16.0) % Plt Count (160-400) X10*3/uL MPV (9.4-12.4) fL Immature Gran % (Auto) (0.0-0.4) % Neut % (Auto) (45-73) % Lymph % (Auto) (20-40) % Randolph % (Auto) (2-11) % Eos % (Auto) (0-4) % Baso % (Auto) (0-2) % Lymph # (Auto) (1.2-4.9) X10*3/uL Randolph # (Auto) (0.1-1.2) X10*3/uL Eos # (Auto) (0.0-0.4) X10*3/uL Baso # (Auto) (0.0-0.2) X10*3/uL Abs Immat Gran (auto) (0.00-0.03) X10*3/uL Absolute Neuts (auto) (2.0-8.3) x10*3/uL Absolute Nucleated RBC (0.0-0.012) X10*3/uL Nucleated RBC % (auto) (0.0-0.2) /100WBC Smear Tech's Comments Sodium (135-145) mmol/L Potassium (3.3-5.1) mmol/L Chloride (96-108) mmol/L Carbon Dioxide (22-29) mmol/L Anion Gap (12-20) BUN (9-16) mg/dL Creatinine (0.5-1.4) mg/dL Estim Creat Clear Calc Estimated GFR Random Glucose (60-115) mg/dL Lactic Acid (0.5-2.0) mmol/L Calcium (8.4-10.2) mg/dL Total Bilirubin (0.0-1.0) mg/dL AST (5-37) U/L ALT (0-40) U/L Alkaline Phosphatase (39-117) U/L Total Protein (6.5-8.0) g/dL Albumin (3.5-5.0) g/dL COVID-19 (SUSANA) Negative (Negative) COVID-19 Clin Com See Note ECG Data Attestation: I personally reviewed and interpreted this ECG as follows: ECG interpretation date: 01/13/22 ECG interpretation time: 07:02 Interpretation: Rate: 81 Rhythm: NSR [place]: left , LVH Normal P waves. Normal ELICEO. Normal QRS complex. ST T wave : no ROXI, non specific in aVL qTC: normal prior studies: no acute ischemia The study has been interpreted contemporaneously by me. . Discharge Plan Discharge Clinical Impression: Otitis externa Qualifiers: Otitis externa type: diffuse Chronicity: acute Laterality: left Qualified Code(s): H60.312 - Diffuse otitis externa, left ear Otitis media Qualifiers: Otitis media type: suppurative Chronicity: acute Laterality: left Recurrence: recurrent Spontaneous tympanic membrane rupture: without spontaneous rupture Qualified Code(s): H66.005 - Acute suppurative otitis media without spontaneous rupture of ear drum, recurrent, left ear HTN (hypertension) Qualifiers: Hypertension type: unspecified Qualified Code(s): I10 - Essential (primary) hypertension Leukocytosis Qualifiers: Leukocytosis type: unspecified Qualified Code(s): D72.829 - Elevated white blood cell count, unspecified Acute mastoiditis Qualifiers: Laterality: left Qualified Code(s): H70.002 - Acute mastoiditis without complications, left ear Patient Disposition: Admitted As Inpatient Print Language: Tajik
[2022-01-13 06:49] LABS: Basophils Absolute Auto 0.1 X10*3/uL (0.0-0.2); Basophils Percent Auto 0.3 % (0-2); Eosinophils Absolute Auto 0.4 X10*3/uL (0.0-0.4); Eosinophils Percent Auto 1.7 % (0-4); Hematocrit 50.9 % (42.0-52.0); Hemoglobin 16.9 g/dl (14.0-18.0); Imm Gran Abs Auto 0.12 X10*3/uL (0.00-0.03); Imm Gran Pct Auto 0.6 % (0.0-0.4); Lymphocytes Absolute Auto 3.4 X10*3/uL (1.2-4.9); Lymphocytes Percent Auto 16.1 % (20-40); Mean Corpuscular HGB Conc 33.2 g/dl (31.0-36.0); Mean Corpuscular Hemoglobin 28.5 pg (27.0-33.0); Mean Platelet Volume 10.8 fL (9.4-12.4); Monocytes Absolute Auto 2.7 X10*3/uL (0.1-1.2); Monocytes Percent Auto 12.7 % (2-11); Neutrophils Absolute Auto 14.5 x10*3/uL (2.0-8.3); Neutrophils Percent Auto 68.6 % (45-73); Platelet Count 272 X10*3/uL (160-400); Red Blood Count 5.92 X10*6/uL (4.60-5.80); Red Cell Distribution Width 15.7 % (11.0-16.0); SCAN SMEAR FLAG 1; White Blood Count 21.2 X10*3/uL (4.8-10.8)
[2022-01-13 06:54] LABS: MANUAL DIFF FLAG SCAN
[2022-01-13 07:11] LABS: Alanine Aminotransferase 18 U/L (0-40); Albumin Level 4.3 g/dL (3.5-5.0); Alkaline Phosphatase 92 U/L (39-117); Anion Gap 14 (12-20); Aspartate Amino Transferase 14 U/L (5-37); Bilirubin Total 0.7 mg/dL (0.0-1.0); Blood Urea Nitrogen 20 mg/dL (9-16); Calcium 9.6 mg/dL (8.4-10.2); Carbon Dioxide 23 mmol/L (22-29); Chloride 106 mmol/L (96-108); Creatinine Clr Calc Pharmacy 68.3; Estimated Glomerular Filt Rate > 60; Glucose Random 108 mg/dL (60-115); Potassium 4.3 mmol/L (3.3-5.1); Sodium 139 mmol/L (135-145); Total Protein 7.3 g/dL (6.5-8.0)
[2022-01-13 07:31] LABS: SLIDE REVIEW VERIFIED
[2022-01-13] MEDS: NeoMYCIN/Polymyxin/HC Otic Sol BOTTLE 4 DROP EAR-LEFT (07:36)
[2022-01-13] MEDS: amLODIPine Besylate 5 MG TABLET PO ×2 (07:36→11:19)
[2022-01-13 07:48] LABS: Lactic Acid 1.2 mmol/L (0.5-2.0)
[2022-01-13] MEDS: levoFLOXacin/D5W 500 MG/100 ML PIGGYBACK 100 MG IV (07:55)
[2022-01-13] MEDS: hydrALAZINE HCl 20 MG/ML VIAL 10 MG IVPUSH (09:26)
[2022-01-13] MEDS: Piperacillin Sodium/Tazobactam 3.375 GM in 0.9 % Sodium Chloride 50 ML IV ×3 (10:44→21:52)
[2022-01-13 11:07] LABS: COVID-19 Test Negative (Negative)
--- NOTE | 2022-01-13 11:28 | P.HPHOSP_ITS ---
History of Present Illness Date of Service: 01/13/22 Chief Complaint: Left ear pain 56 year old male with who is not diabetic, he has HTN that is not well controlled, stable mild intermittent asthma he is here with 3 days of left ear pain, and swelling in the area, the pain is unbearable and he has difficulty hearing on that side, he has no prior episode, pain is worse when talking. He reports no fever. WBC is [address] is reported as follow: 1. There is opacification of the left middle ear cavity and mastoid air cells, there is also soft tissue thickening in the external artery canal and around the left auricle. The findings are consistent with left otitis externa and otomastoiditis. The right mastoid structures are normal. ? 2. There is mild mucoperiosteal thickening in the bilateral maxillary sinuses. There are extensive periapical lucencies in the maxilla bilaterally. He is received Levaquin and Zosyn and is being admitted for continuing IV antibiotics therapy. Of note he is not adherent to his BP and his BP is extremely high here SBP 199 to 223 Review of Systems Review of Systems: Gen: no fever Resp: no sob, no cough CV: no chest, no LUNA, no leg edema GI: No n/v, no abd pain Neuro: No confusion Yes all other systems are reviewed and are negative ON LICENSE OF [facility] Medical History Bronchitis HTN (hypertension) Social History Patient Tobacco Use Status: Current everyday Tobacco user Substance Use Type: Crack/Cocaine Advance Directives: Yes Advance Directives Information Provided: Yes Advance Directives on File: No Meds Allergies Allergy/AdvReac Type Severity Reaction Status Date / Time No Known Allergies Allergy Verified 09/19/21 15:11 [No Known Allergies*] Active Medications: Current Medications Pharmacy Consult (Consult Rx Perform Med Rec) 1 each MISCELLANE ONCE PRN PRN Reason: Consult order Physical Exam Vital Signs and Narrative: Vital Signs: Last Vital Signs Temp 98.2 F 01/13/22 07:15 Pulse 90 01/13/22 11:20 Resp 16 01/13/22 09:25 BP 206/97 H 01/13/22 11:20 Pulse Ox 98 01/13/22 11:20 O2 Del Method 08/06/22 11:20 BMI result Body Mass Index 29.0 Const: Other: Constitutional: Alert, in no distress, overweight. Mental Status: Oriented to person, place and time. Eyes: Pupils are equal, round and reactive to light. Ear, Nose and Throat: Oropharynx clear, mucous membranes moist. Ears and nose without eformities. Trachea midline. Respiratory: Clear to auscultation. No wheezing, rales or rhonchi. Cardiovascular: S1 S2 regular. No murmurs, rubs or gallops. Gastrointestinal: Abdomen soft, non-tender, non-distended. Normal bowel sounds.? Neurologic: Cranial nerves II-XII grossly intact. No focal neurological deficits. Moves all extremities spontaneously.? Skin: No rashes or lesions.? Musculoskeletal: No cyanosis or clubbing. Psychiatric: Normal mood and affect? Results Labs CBC and Chem 7: 01/14/22 07:30 01/13/22 06:42 Labs: Laboratory Results - last 24 hr 01/13/22 01/13/22 01/13/22 06:42 06:42 07:23 MCV 86.0 MCH 28.5 MCHC 33.2 RDW 15.7 Plt Count 272 MPV 10.8 Immature Gran % (Auto) 0.6 H Neut % (Auto) 68.6 Lymph % (Auto) 16.1 L [place] % (Auto) 12.7 H Eos % (Auto) 1.7 Baso % (Auto) 0.3 Lymph # (Auto) 3.4 [place] # (Auto) 2.7 H Eos # (Auto) 0.4 Baso # (Auto) 0.1 Abs Immat Gran (auto) 0.12 H Absolute Neuts (auto) 14.5 H Absolute Nucleated RBC 0.000 Nucleated RBC % (auto) 0.0 Smear Tech's Comments VERIFIED Anion Gap 14 Estim Creat Clear Calc 68.3 Estimated GFR > 60 Random Glucose 108 Lactic Acid 1.2 Calcium 9.6 Total Bilirubin 0.7 AST 14 ALT 18 Alkaline Phosphatase 92 Total Protein 7.3 Albumin 4.3 COVID-19 ([facility]NA) COVID-19 Clin Com 01/13/22 10:43 MCV MCH MCHC RDW Plt Count MPV Immature Gran % (Auto) Neut % (Auto) Lymph % (Auto) Barron % (Auto) Eos % (Auto) Baso % (Auto) Lymph # (Auto) Barron # (Auto) Eos # (Auto) Baso # (Auto) Abs Immat Gran (auto) Absolute Neuts (auto) Absolute Nucleated RBC Nucleated RBC % (auto) Smear Tech's Comments Anion Gap Estim Creat Clear Calc Estimated GFR Random Glucose Lactic Acid Calcium Total Bilirubin AST ALT Alkaline Phosphatase Total Protein Albumin COVID-19 (SUSANA) Negative COVID-19 Clin Com See Note Imaging Radiologist's Impressions: Impressions Head/Mastoid CT 01/13/22 08:00 IMPRESSION: 1. There is opacification of the left middle ear cavity and mastoid air cells, there is also soft tissue thickening in the external artery canal and around the left auricle. The findings are consistent with left otitis externa and otomastoiditis. The right mastoid structures are normal. 2. There is mild mucoperiosteal thickening in the bilateral maxillary sinuses. There are extensive periapical lucencies in the maxilla bilaterally. Assessment and Plan (1) Otitis externa: Qualifiers: Chronicity: acute Laterality: left Otitis externa type: diffuse Qualified Code(s): H60.312 - Diffuse otitis externa, left ear Status: Acute (2) Otitis media: Qualifiers: Chronicity: acute Laterality: left Otitis media type: suppurative Recurrence: recurrent Spontaneous tympanic membrane rupture: without spontaneous rupture Qualified Code(s): H66.005 - Acute suppurative otitis media without spontaneous rupture of ear drum, recurrent, left ear Status: Acute (3) HTN (hypertension): Qualifiers: Hypertension type: unspecified Qualified Code(s): I10 - Essential (primary) hypertension Status: Acute (4) Leukocytosis: Qualifiers: Leukocytosis type: unspecified Qualified Code(s): D72.829 - Elevated white blood cell count, unspecified Status: Acute Plan 56/m with HTN here with left Otitis media and externa, as well as accelerated HTn 1/ Otitis media/external -IV Zosyn -Dilaudid for pain 2/ HTN--resume outpatient meds -IV Hydrlazine and or Labetalol for control 3/ mild intermitent asthma without exacerbation--stable' Quality Stroke Does the patient have a stroke diagnosis?: No VTE Prior VTE?: No VTE Risk Level:: Medical - low VTE Device Contraindication: Treatment Not Indicated VTE Drug Contraindication: Treatment Not Indicated
[2022-01-13] MEDS: oxyCODONE HCl Immed Release 5 MG TABLET PO ×2 (12:09→17:14)
[2022-01-13] MEDS: LORazepam 1 MG TABLET PO (12:10)
--- NOTE | 2022-01-13 12:13 | PC.NURSE ---
pts son at bedside. pt tearful, reporting to t/w with use of business technology analyst, that he is very scared to be in the hospital, reporting a lot of anxiety and 10/10 pain. offered pt PO medications to help and he accepted. Oxycodone 5mg PO and Ativan 1mg PO ordered per
--- NOTE | 2022-01-13 13:13 | ECG_ITS ---
Test Reason : EAR PAIN Blood Pressure : / mmHG Vent. Rate : 078 BPM Atrial Rate : 078 BPM P-R Int : 178 ms QRS Dur : 104 ms QT Int : 370 ms P-R-T Axes : 015 -12 056 degrees QTc Int : 421 ms Normal sinus rhythm Incomplete right bundle branch block Minimal voltage criteria for LVH, may be normal variant ( Andrew product ) Borderline ECG When compared with ECG of 03-NOV-2020 08:57, No significant change was found Referred By: Noy Ovalles Electronically Signed By:BETZY PEREZ
[2022-01-13] MEDS: 0.9 % Sodium Chloride Flush 3 ML SYRINGE IVFLUSH (17:10)
--- NOTE | 2022-01-13 18:43 | PC.NURSE ---
pt family brought in food, pt refused tray from hospital. pt reported feeling achey and feverish, oral temp 98.9. medicated pt with PO Oxycodone 5mg for 6/10 L neck pain. informed pt of DIlaudid medication available for severe pain by Marcellus - translator/interpreter
--- NOTE | 2022-01-13 19:22 | PC.NURSE ---
Assumed care of this pt. at 1900 - report from Lili Phillips RN
[2022-01-14] MEDS: Piperacillin Sodium/Tazobactam 3.375 GM in 0.9 % Sodium Chloride 50 ML IV ×4 (05:35→22:51)
[2022-01-14 05:36] VITALS: BP 159/84; PULSE 82; RESP 18; TEMP 37; O2SAT 95
[2022-01-14 07:52] LABS: Basophils Absolute Auto 0.1 X10*3/uL (0.0-0.2); Basophils Percent Auto 0.3 % (0-2); Eosinophils Absolute Auto 0.1 X10*3/uL (0.0-0.4); Eosinophils Percent Auto 0.6 % (0-4); Hematocrit 49.6 % (42.0-52.0); Hemoglobin 16.7 g/dl (14.0-18.0); Imm Gran Abs Auto 0.11 X10*3/uL (0.00-0.03); Imm Gran Pct Auto 0.5 % (0.0-0.4); Lymphocytes Absolute Auto 3.1 X10*3/uL (1.2-4.9); Lymphocytes Percent Auto 14.5 % (20-40); MANUAL DIFF FLAG SCAN; Mean Corpuscular HGB Conc 33.7 g/dl (31.0-36.0); Mean Corpuscular Hemoglobin 28.7 pg (27.0-33.0); Mean Corpuscular Volume 85.2 fL (80.0-98.0); Mean Platelet Volume 10.4 fL (9.4-12.4); Monocytes Absolute Auto 2.9 X10*3/uL (0.1-1.2); Monocytes Percent Auto 13.4 % (2-11); Neutrophils Absolute Auto 15.2 x10*3/uL (2.0-8.3); Neutrophils Percent Auto 70.7 % (45-73); Platelet Count 267 X10*3/uL (160-400); Red Blood Count 5.82 X10*6/uL (4.60-5.80); Red Cell Distribution Width 15.6 % (11.0-16.0); SCAN SMEAR FLAG 1; White Blood Count 21.5 X10*3/uL (4.8-10.8)
[2022-01-14 08:30] LABS: SLIDE REVIEW VERIFIED
--- NOTE | 2022-01-14 08:37 | PC.NURSE ---
resting queitly. states left ear is feeling better. whick in place. swelling noted.
--- NOTE | 2022-01-14 09:45 | HO.PM.IMPN ---
Subjective Subjective Date of Service: 01/14/22 Interval History: follow-up on a otitis media and externa. He feels a lot better in the pain in the left ear. There is no drainage Review of Systems left ear pain that is much better. No fever Physical Exam Vital Signs: Vital Signs: Last Vital Signs Temp 98.6 F 01/14/22 05:36 Pulse 82 01/14/22 05:36 Resp 18 01/14/22 05:36 BP 159/84 H 01/14/22 05:36 Pulse Ox 95 01/14/22 05:36 O2 Del Method 01/14/22 05:36 BMI result Body Mass Index 29.0 Const: Other: General: AO X 3, no acute distress Resp: CTA bilateral HEENT..swelling outside of the left ear, wick in place CVS: S1,S2,RRR GI: +BS, NT, no distention Skin: No rash Neuro: motor grossly intact Psych: appropriate affect Objective Data Active Medications Acetaminophen (Acetaminophen 325 Mg Tablet) 650 mg PO Q6H PRN PRN Reason: Pain, Mild (Pain Scale 1-3) Hydralazine HCl (Hydralazine Hcl 20 Mg/Ml Vial) 10 mg IVPUSH Q6H PRN; Protocol PRN Reason: SBP > 180 Hydromorphone HCl (Hydromorphone Hcl 0.5 Mg/0.5 Ml Syringe) 0.5 mg IVPUSH Q4H PRN; Protocol PRN Reason: Pain, Severe (Pain Scale 7-10) Piperacillin Sod/Tazobactam (Sod 3.375 gm/ Sodium Chloride) 50 mls @ 100 mls/hr IV Q6H PASCUAL Last Admin: 01/14/22 05:35 Dose: 100 mls/hr Documented By: LYNNE Melatonin (Melatonin 3 Mg Tablet) 6 mg PO BEDTIME PRN PRN Reason: Insomnia Oxycodone HCl (Oxycodone Hcl Immed Release 5 Mg Tablet) 5 mg PO Q6H PRN PRN Reason: Pain, Severe (Pain Scale 7-10) Last Admin: 01/13/22 17:14 Dose: 5 mg Documented By: BELLO Oxycodone HCl (Oxycodone Hcl Immed Release 5 Mg Tablet) 5 mg PO Q6H PRN PRN Reason: Pain, Severe (Pain Scale 7-10) Pharmacy Consult (Consult Rx Perform Med Rec) 1 each MISCELLANE ONCE PRN PRN Reason: Consult order Sodium Chloride (0.9 % Sodium Chloride Flush 3 Ml Syringe) 3 ml IVFLUSH QSHIFT PASCUAL Last Admin: 01/14/22 08:36 Dose: Not Given Documented By: YANCY Non-Admin Reason: Med Not Available Labs CBC & Chem 7: 01/14/22 07:30 01/13/22 06:42 Labs: Laboratory Results - last 24 hr 01/13/22 01/14/22 10:43 07:30 MCV 85.2 MCH 28.7 MCHC 33.7 RDW 15.6 Plt Count 267 MPV 10.4 Immature Gran % (Auto) 0.5 H Neut % (Auto) 70.7 Lymph % (Auto) 14.5 L [place] % (Auto) 13.4 H Eos % (Auto) 0.6 Baso % (Auto) 0.3 Lymph # (Auto) 3.1 [place] # (Auto) 2.9 H Eos # (Auto) 0.1 Baso # (Auto) 0.1 Abs Immat Gran (auto) 0.11 H Absolute Neuts (auto) 15.2 H Absolute Nucleated RBC 0.000 Nucleated RBC % (auto) 0.0 Smear Tech's Comments VERIFIED COVID-19 ([facility]) Negative COVID-19 Clin Com See Note Microbiology Microbiology Results: Microbiology 01/13/22 07:23 Blood Culture - Preliminary Blood - Venous No growth after 24 hours. Assessment and Plan (1) Otitis externa: Status: Acute (2) Acute mastoiditis: Status: Acute Plan 56 year old male with who is not diabetic, he has HTN that is not well controlled, stable mild intermittent asthma he is here with 3 days of left ear pain, and swelling in the area, the pain is unbearable and he has difficulty hearing on that side, he has no prior episode, pain is worse when talking. He reports no fever. WBC is [address] is reported as follow: 1.Left otitis externa and otomastoiditis--improving, yet WBC remains very high -Continue Zosyn for at least one more day and if better by tomorrow, change to Augmentin and outpatient ENT follo up -Dilaudid for pain 2. HTN.. Not adherent to meds, -BP is better now -restart Norvasc 5 and PRN hydralazine Inaptient need for IV Abx for otitis media and otomastoiditis and may potentiallly need intervention Quality Stroke Does the patient have a stroke diagnosis?: No VTE Prior VTE?: No VTE Risk Level:: Medical - low VTE Device Contraindication: Treatment Not Indicated VTE Drug Contraindication: Treatment Not Indicated
[2022-01-14 11:11] VITALS: BP 151/84; PULSE 80; RESP 15; TEMP 36.9; O2SAT 95
[2022-01-14 12:27] VITALS: BP 155/88; PULSE 76; O2SAT 97
[2022-01-14] MEDS: amLODIPine Besylate 5 MG TABLET PO (12:28)
[2022-01-14] MEDS: oxyCODONE HCl Immed Release 5 MG TABLET PO (12:28)
[2022-01-14 14:36] VITALS: BP 163/79; PULSE 67; RESP 17; TEMP 36.8; O2SAT 97
--- NOTE | 2022-01-14 14:38 | PC.NURSE ---
rn to rn with linda on [facility]
[2022-01-14 15:26] VITALS: BP 168/90; PULSE 71; RESP 18; TEMP 36.6; O2SAT 97
[2022-01-14] MEDS: 0.9 % Sodium Chloride Flush 3 ML SYRINGE IVFLUSH ×2 (15:57→22:52)
[2022-01-14] MEDS: Acetaminophen 325 MG TABLET 650 MG PO (22:54)
[2022-01-14 23:13] VITALS: BP 161/82; PULSE 81; RESP 16; TEMP 37.2; O2SAT 94
[2022-01-15] MEDS: Piperacillin Sodium/Tazobactam 3.375 GM in 0.9 % Sodium Chloride 50 ML IV ×4 (04:56→21:26)
[2022-01-15 05:49] LABS: Hematocrit 46.3 % (42.0-52.0); Hemoglobin 15.3 g/dl (14.0-18.0); Mean Corpuscular Hemoglobin 28.7 pg (27.0-33.0); Mean Corpuscular Volume 86.9 fL (80.0-98.0); Mean Platelet Volume 10.9 fL (9.4-12.4); Platelet Count 271 X10*3/uL (160-400); Red Blood Count 5.33 X10*6/uL (4.60-5.80); Red Cell Distribution Width 15.4 % (11.0-16.0); White Blood Count 15.6 X10*3/uL (4.8-10.8)
[2022-01-15 08:00] VITALS: BP 167/86; PULSE 73; RESP 18; TEMP 37.7; O2SAT 94
[2022-01-15] MEDS: 0.9 % Sodium Chloride Flush 3 ML SYRINGE IVFLUSH (09:27)
[2022-01-15] MEDS: amLODIPine Besylate 5 MG TABLET PO (09:28)
--- NOTE | 2022-01-15 09:43 | MHC.CM.PN ---
Addendum entered by Jing Agustin 01/15/22 09:47: Correction: PCP is Bud Ospina Original Note: No IMM required Serbian Speaking patient. Patient lives with his S.O.. He reports he is independent at home and community, does not use any DME or receive any home services. PCP is Niyah Moreno, he is Not Covid vax'd. He will complete a HCP. His son Selwyn Mayfield Will transport. D/C Plan is Home self-care.
--- NOTE | 2022-01-15 09:51 | HO.PM.IMPN ---
Subjective Subjective Date of Service: 01/15/22 Interval History: follow-up on a otitis media and externa. Still has some pain in the left ear, swelling and has decrease hearing on the left side Review of Systems left ear pain that is much better. No fever Physical Exam Vital Signs: Vital Signs: Last Vital Signs Temp 99.8 F 01/15/22 08:00 Pulse 73 01/15/22 08:00 Resp 18 01/15/22 08:00 BP 167/86 H 01/15/22 08:00 Pulse Ox 94 01/15/22 08:00 O2 Del Method 01/15/22 08:00 BMI result Body Mass Index 29.0 Const: Other: General: AO X 3, no acute distress Resp: CTA bilateral HEENT..swelling outside of the left ear, wick is out CVS: S1,S2,RRR GI: +BS, NT, no distention Skin: No rash Neuro: motor grossly intact Psych: appropriate affect Objective Data Active Medications Acetaminophen (Acetaminophen 325 Mg Tablet) 650 mg PO Q6H PRN PRN Reason: Pain, Mild (Pain Scale 1-3) Last Admin: 01/14/22 22:54 Dose: 650 mg Documented By: BONG Albuterol Sulfate (Albuterol Sulfate 90 Mcg 8 Gm Inhaler) 2 puff INHALE QID PRN PRN Reason: shortness of breath or wheezing Amlodipine Besylate (Amlodipine Besylate 5 Mg Tablet) 5 mg PO DAILY [facility]; Protocol Last Admin: 01/15/22 09:28 Dose: 5 mg Documented By: PAO Hydralazine HCl (Hydralazine Hcl 20 Mg/Ml Vial) 10 mg IVPUSH Q6H PRN; Protocol PRN Reason: SBP > 180 Hydromorphone HCl (Hydromorphone Hcl 0.5 Mg/0.5 Ml Syringe) 0.5 mg IVPUSH Q4H PRN; Protocol PRN Reason: Pain, Severe (Pain Scale 7-10) Piperacillin Sod/Tazobactam (Sod 3.375 gm/ Sodium Chloride) 50 mls @ 100 mls/hr IV Q6H [facility] Last Admin: 01/15/22 09:28 Dose: 100 mls/hr Documented By: PAO Melatonin (Melatonin 3 Mg Tablet) 6 mg PO BEDTIME PRN PRN Reason: Insomnia Oxycodone HCl (Oxycodone Hcl Immed Release 5 Mg Tablet) 5 mg PO Q6H PRN PRN Reason: Pain, Severe (Pain Scale 7-10) Last Admin: 01/14/22 12:28 Dose: 5 mg Documented By: BELLO Oxycodone HCl (Oxycodone Hcl Immed Release 5 Mg Tablet) 5 mg PO Q6H PRN PRN Reason: Pain, Severe (Pain Scale 7-10) Pharmacy Consult (Consult Rx Perform Med Rec) 1 each MISCELLANE ONCE PRN PRN Reason: Consult order Sodium Chloride (0.9 % Sodium Chloride Flush 3 Ml Syringe) 3 ml IVFLUSH QSHIFT [facility] Last Admin: 01/15/22 09:27 Dose: 3 ml Documented By: PAO Labs CBC & Chem 7: 01/15/22 05:08 01/13/22 06:42 Labs: Laboratory Results - last 24 hr 01/15/22 05:08 MCV 86.9 MCH 28.7 MCHC 33.0 RDW 15.4 Plt Count 271 MPV 10.9 Absolute Nucleated RBC 0.000 Nucleated RBC % (auto) 0.0 Microbiology Microbiology Results: Microbiology 01/13/22 07:23 Blood Culture - Preliminary Blood - Venous No growth after 48 hours. 01/13/22 07:52 Blood Culture - Preliminary Blood - Venous No growth after 24 hours. Assessment and Plan (1) Otitis externa: Status: Acute (2) Acute mastoiditis: Status: Acute Plan 56 year old male with who is not diabetic, he has HTN that is not well controlled, stable mild intermittent asthma he is here with 3 days of left ear pain, and swelling in the area, the pain is unbearable and he has difficulty hearing on that side, he has no prior episode,? pain is worse when talking.? He reports no fever. WBC is [address] is reported as follow: 1.Left? otitis externa and otomastoiditis--improving, improving yet still has pain and swelling continue IV Zosyn, ID consult and repeat CT 2. HTN.. Not adherent to meds, -BP is better now -continue Norvasc 5, increase to 10 and PRN hydralazine Inaptient need for IV Abx for otitis media and otomastoiditis and may potentiallly need intervention Quality Stroke Does the patient have a stroke diagnosis?: No VTE Prior VTE?: No VTE Risk Level:: Medical - low VTE Device Contraindication: Treatment Not Indicated VTE Drug Contraindication: Treatment Not Indicated
--- NOTE | 2022-01-15 13:16 | P.CNID_ITS ---
History of Present Illness Data of Consult Service Date: 01/15/22 Requesting physician: Douglas Chew Primary Care Provider: Niyah Moreno MD [facility] Reason for consult: left ear swelling and pain He presents with three days left ear swelling and pain and pain in neck area as well. He has had this happen in past and hasnt seen ENT He doesnt mention when last time he had ear swelling. He has no fever or chills. Review of Systems Review of Systems: Yes all other systems are reviewed and are negative [facility] Past Medical History Medical History Bronchitis HTN (hypertension) Social History Social History Household Members: Spouse Housing: House Do you presently have visiting nurse or other home services: No Patient Tobacco Use Status: Current everyday Tobacco user Tobacco use type: Cigarette Cigarette Packs Per Day: 1.5 Cigarettes Per Day: 30.0 Substance Use Type: Crack/Cocaine service: No Current occupational status: unemployed Meds Allergies Allergy/AdvReac Type Severity Reaction Status Date / Time No Known Allergies Allergy Verified 09/19/21 15:11 [No Known Allergies*] Active Medications: Current Medications Acetaminophen (Acetaminophen 325 Mg Tablet) 650 mg PO Q6H PRN PRN Reason: Pain, Mild (Pain Scale 1-3) Last Admin: 01/14/22 22:54 Dose: 650 mg Albuterol Sulfate (Albuterol Sulfate 90 Mcg 8 Gm Inhaler) 2 puff INHALE QID PRN PRN Reason: shortness of breath or wheezing Amlodipine Besylate (Amlodipine Besylate 5 Mg Tablet) 5 mg PO DAILY [facility]; Protocol Last Admin: 01/15/22 09:28 Dose: 5 mg Hydralazine HCl (Hydralazine Hcl 20 Mg/Ml Vial) 10 mg IVPUSH Q6H PRN; Protocol PRN Reason: SBP > 180 Hydromorphone HCl (Hydromorphone Hcl 0.5 Mg/0.5 Ml Syringe) 0.5 mg IVPUSH Q4H PRN; Protocol PRN Reason: Pain, Severe (Pain Scale 7-10) Piperacillin Sod/Tazobactam (Sod 3.375 gm/ Sodium Chloride) 50 mls @ 100 mls/hr IV Q6H [facility] Last Infusion: 01/15/22 10:00 Dose: Infused Melatonin (Melatonin 3 Mg Tablet) 6 mg PO BEDTIME PRN PRN Reason: Insomnia Oxycodone HCl (Oxycodone Hcl Immed Release 5 Mg Tablet) 5 mg PO Q6H PRN PRN Reason: Pain, Severe (Pain Scale 7-10) Last Admin: 01/14/22 12:28 Dose: 5 mg Oxycodone HCl (Oxycodone Hcl Immed Release 5 Mg Tablet) 5 mg PO Q6H PRN PRN Reason: Pain, Severe (Pain Scale 7-10) Pharmacy Consult (Consult Rx Perform Med Rec) 1 each MISCELLANE ONCE PRN PRN Reason: Consult order Sodium Chloride (0.9 % Sodium Chloride Flush 3 Ml Syringe) 3 ml IVFLUSH QSHIFT [facility] Last Admin: 01/15/22 09:27 Dose: 3 ml Physical Exam Vital Signs: Vital Signs: Last Vital Signs Temp 99.8 F 01/15/22 08:00 Pulse 73 01/15/22 08:00 Resp 18 01/15/22 08:00 BP 167/86 H 01/15/22 08:00 Pulse Ox 94 01/15/22 08:00 O2 Del Method 01/15/22 08:00 BMI result Body Mass Index 29.0 Const: General: cooperative HEENT: Head: Yes normal to inspection Face and sinus: Yes normal facial exam Mouth: Normal oral and palatal mucosa present Teeth and gingiva: dentition normal Eyes: General: appearance normal, both eyes and all related structures Pupils: Equal, round and reactive pupils present Neck: Other: swelling diffuse left neck area left ear reddened and enlarged Neck: Yes lymphadenopathy Thyroid: Thyroid normal Resp: Effort & Inspection: normal respiratory effort Cardio: Rate: regular rate Rhythm: regular rhythm GI: Palpation (GI): Soft to palpation and nontender : General: Yes no CVA tenderness Back/Spine/Pelvis: Back: no CVA tenderness Skin: General skin exam: no rashes or lesions noted Neuro: General: moves all extremities Cranial nerves: Yes Equal, round and reactive pupils present Extrem: General: Yes normal to inspection Psych: Appearance: grossly normal Results Labs CBC & Chem 7: 01/15/22 05:08 01/13/22 06:42 Labs: Short CBC 01/15/22 Range/Units 05:08 WBC 15.6 H (4.8-10.8) X10*3/uL Hgb 15.3 (14.0-18.0) g/dl Hct 46.3 (42.0-52.0) % Plt Count 271 (160-400) X10*3/uL Microbiology Microbiology Results: Microbiology 01/13/22 07:52 Blood - Venous Blood Culture - Preliminary No growth after 48 hours. 01/13/22 07:23 Blood - Venous Blood Culture - Preliminary No growth after 48 hours. Assessment and Plan (1) Otitis externa: Qualifiers: Chronicity: acute Laterality: left Otitis externa type: diffuse Qualified Code(s): H60.312 - Diffuse otitis externa, left ear Status: Acute (2) Otitis media: Qualifiers: Chronicity: acute Laterality: left Otitis media type: suppurative Recurrence: recurrent Spontaneous tympanic membrane rupture: without spontaneous rupture Qualified Code(s): H66.005 - Acute suppurative otitis media without spontaneous rupture of ear drum, recurrent, left ear Status: Acute He has had swelling in past. He doesnt have known malignancy or diabetes relative to this. He denies water contact such as parrish swimming. Probable infection including Pseudomonas causing otitis media and externa. 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 Plan Would continue Piperacillin/Tazobactam for another day or two (culture negative). Discharge on po Levaquin for 14 days. .See ENT as outpatient make sure no obstructing malignancy in throat/
[2022-01-15 15:07] VITALS: BP 145/83; PULSE 72; RESP 17; TEMP 37.1; O2SAT 97
[2022-01-15] MEDS: oxyCODONE HCl Immed Release 5 MG TABLET PO (16:00)
[2022-01-15 23:09] VITALS: BP 145/82; PULSE 70; RESP 17; TEMP 36.3; O2SAT 96
[2022-01-16] MEDS: Piperacillin Sodium/Tazobactam 3.375 GM in 0.9 % Sodium Chloride 50 ML IV ×2 (04:17→08:53)
[2022-01-16 06:01] LABS: Hematocrit 46.6 % (42.0-52.0); Hemoglobin 15.4 g/dl (14.0-18.0); Mean Corpuscular Hemoglobin 28.7 pg (27.0-33.0); Mean Corpuscular Volume 86.9 fL (80.0-98.0); Mean Platelet Volume 10.6 fL (9.4-12.4); Platelet Count 284 X10*3/uL (160-400); Red Blood Count 5.36 X10*6/uL (4.60-5.80); Red Cell Distribution Width 15.4 % (11.0-16.0); White Blood Count 13.9 X10*3/uL (4.8-10.8)
[2022-01-16 07:40] VITALS: BP 148/83; PULSE 64; RESP 18; TEMP 37; O2SAT 96
[2022-01-16] MEDS: oxyCODONE HCl Immed Release 5 MG TABLET PO (08:52)
[2022-01-16] MEDS: amLODIPine Besylate 5 MG TABLET PO (08:52)
[2022-01-16] MEDS: 0.9 % Sodium Chloride Flush 3 ML SYRINGE IVFLUSH (08:53)
--- NOTE | 2022-01-16 09:19 | PM.DS ---
DS: Providers Provider Date of Service: 01/16/22 Date of admission: 01/13/22 12:27 Primary care physician: Niyah Moreno MD Consults: 01/15/22 09:48 Consult to Infectious Diseases Routine Consulting Provider: Re Reese Reason for consultation: otomastoiditis, otitis externa Has provider been notified: No DS: Diagnosis Discharge Diagnosis (1) Otitis externa: Status: Acute (2) Otitis media: Status: Acute DS: Summary Hospital Course Hospital Course: Chief Complaint: Left ear pain 56 year old male with who is not diabetic, he has HTN that is not well controlled, stable mild intermittent asthma he is here with 3 days of left ear pain, and swelling in the area, the pain is unbearable and he has difficulty hearing on that side, he has no prior episode,? pain is worse when talking.? He reports no fever. WBC is [address] is reported as follow: 1. There is opacification of the left middle ear cavity and mastoid air cells, there is also soft tissue thickening in the external artery canal and around the left auricle. The findings are consistent with left otitis externa and otomastoiditis. The right mastoid structures are normal. ? 2. There is mild mucoperiosteal thickening in the bilateral maxillary sinuses. There are extensive periapical lucencies in the maxilla bilaterally. He is received Levaquin and Zosyn and is being admitted for continuing IV antibiotics therapy. Of note he is not adherent to his BP and his BP is extremely high here SBP? 199 to 223\ Hospital course: 1.Left? otitis externa and otomastoiditis--Treated with IV Zosyn in the hospital for 3 days with signficant imporovement in imflamation and pain level has markedly gone down from 21 to now 13, however he still lack hearing in the left ear which could be permanent or partial but hard to tell at js time. Dr Reese from [place] recommends 14 days of Levaquin upon discharge and he'surged to see an ENT doctor on outpatient basis. 2. HTN.. Initiall BPs were very high, he has not been compliant with his medication, he was treated initially with IV Hydralazine and restarted on Norvasc 5 and is being titrated up to 10 mg daily, BP is much better control presently as above 3. Leukocytosis--due mastoiditis 4. conduction hearing loss due to ear infection... will probably improve when fully heal or could end up with partial or permanent hearing loss on that side Inaptient need for IV Abx for otitis media and otomastoiditis and may potentiallly need intervention dispo: home Time Spent with Patient Time attestation: Total time spent providing and/or coordinating discharge services: Discharge coordination time: Greater than 30 minutes Quality: Safe Use of Opioids Does Pt have an Active Cancer Diagnosis on the Problem List?: No Quality: Stroke Does the patient have a stroke diagnosis?: No Physical Exam Vital Signs: Vital Signs: Last Vital Signs Temp 98.6 F 01/16/22 07:40 Pulse 64 01/16/22 07:40 Resp 18 01/16/22 07:40 BP 148/83 H 01/16/22 07:40 Pulse Ox 96 01/16/22 07:40 O2 Del Method 01/16/22 07:40 BMI result Body Mass Index 29.0 DS: Data Data Completed and Pending Labs on day of discharge: Laboratory Results - last 24 hr 01/16/22 05:10 WBC 13.9 H RBC 5.36 Hgb 15.4 Hct 46.6 MCV 86.9 MCH 28.7 MCHC 33.0 RDW 15.4 Plt Count 284 MPV 10.6 Absolute Nucleated RBC 0.000 Nucleated RBC % (auto) 0.0 Preliminary micro results at discharge 01/13/22 07:52 Blood Culture - Preliminary Blood - Venous No growth after 48 hours. 01/13/22 07:23 Blood Culture - Preliminary Blood - Venous No growth after 48 hours. Discharge Plan Discharge Anticipated Discharge Date/Time: 01/16/22 08:55 Patient Disposition: Home, Self-Care Discharge Diagnosis: Acute mastoiditis, otitis externa Referrals: Niyah Ahumada MD [Primary Care Provider] - 1 Week Discharge Medications: New oxycodone 5 mg tablet 5 mg PO Q6H PRN (Reason: pain (scale score 7-10)) Qty: 10 0RF Rx Instructions: Partial Fill upon patient request. amlodipine [Norvasc] 10 mg tablet 10 mg PO DAILY Qty: 30 3RF levofloxacin 500 mg tablet 500 mg PO DAILY 14 Days Qty: 14 0RF Continued albuterol sulfate 90 mcg/actuation HFA aerosol inhaler 2 puff inhalation QID PRN (Reason: shortness of breath or wheezing) Qty: 6.7 0RF amlodipine 5 mg tablet 5 mg PO DAILY Qty: 30 2RF Discharge Orders: Discharge Order (Routine); Ordered 01/16/22 Ordered By: Douglas Chew Diet: Advance to usual diet Activity on Discharge: As tolerated Stand Alone Forms: Patient Portal Discharge page Print Language: Divehi Care Plan Goals: full recovery from acute infection, and hearing loss Health Concerns: you have a ear infection that is affecting your ear bones Plan of Treatment: Take Norvasc for blood pressure and go see your doctor in a week, call for appointment Call for appointment [facility], [phone])?? Business Relationship Manager [address] ? Assessment: as above
[2022-01-16] MEDS: levoFLOXacin 500 MG TABLET PO (11:08)
--- NOTE | 2022-01-16 12:27 | MHC.CM.PN ---
PT MEDICALLY CLEARED FOR D/C HOME SELF-CARE W/FAMILY FOR TRANSPORT
== END 2022-01-16 14:20 | disposition home or self-care (01) | DRG 115 ==
LOC: HO.ED 10:51 → HO.EDOVER 12:45 → HO.S3 01-14 13:35
PROVIDERS: Admitting Provider Internal Medicine; Emergency Provider Emergency Medicine; PCP Internal Medicine; Visit Provider Internal Medicine
DX: H60.312 Diffuse otitis externa, left ear (principal); H70.92 Unspecified mastoiditis, left ear; I10 Essential (primary) hypertension; J45.20 Mild intermittent asthma, uncomplicated; D72.829 Elevated white blood cell count, unspecified; F17.210 Nicotine dependence, cigarettes, uncomplicated; Z91.14 Patient's other noncompliance with medication regimen; Z71.6 Tobacco abuse counseling; Z79.899 Other long term (current) drug therapy
CPT/HCPCS: 36415; 70481; 80053; 83605; 85025; 85027; 87040; 87635; 93005; 99284; J1956; J2543

== ENCOUNTER 2023-05-08 09:57 | Outpatient (AMB) | payer OTHER, SELFPAY ==
[2023-05-08 10:12] VITALS: BP 172/90; PULSE 66; O2SAT 98; BMI 27.6
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
== END 2023-05-08 10:49 | disposition home or self-care (01) ==
PROVIDERS: PCP Internal Medicine; Visit Provider Nurse Practitioner Family
DX: I10 Essential (primary) hypertension (principal); V89.2XXA Person injured in unspecified motor-vehicle accident, traffic, initial encounter; S93.104A Unspecified dislocation of right toe(s), initial encounter
CPT/HCPCS: 99213